=== PATIENT | male | born 1940 | race Asian ===

== ENCOUNTER 2021-08-18 18:44 | Inpatient (IN) | payer OTHER ==
[2021-08-18] MEDS ORDERED: HYDROcodone/Acetaminophen 5/325 mg Tablet ONE (20:33)
[2021-08-18] MEDS ORDERED: Dextrose 50% Abboject 50 ML SYRINGE SLOW IVP PRN (22:16)
[2021-08-18] MEDS ORDERED: Dextrose 5% in Water 1,000 ML IV PRN (22:16)
[2021-08-18] MEDS ORDERED: Insulin Regular 300 UNITS/3 ML VIAL SC PRN ×2 (22:16)
[2021-08-18] MEDS ORDERED: Ondansetron PF 4 MG/2 ML Vial IVP PRN (22:16)
[2021-08-18] MEDS ORDERED: Ondansetron ODT 4 MG TAB PO PRN (22:16)
[2021-08-18] MEDS ORDERED: traMADol HCl 50 MG TAB PO PRN (22:25)
[2021-08-18] MEDS ORDERED: Cyclobenzaprine 10 MG TAB PO PRN (22:25)
[2021-08-18 22:30] LABS: #Basophils 0.1 thou/uL (0.0-0.2); #Lymphocytes 1.5 thou/uL (1.20-3.40); #Monocytes 0.6 thou/uL (0.11-0.59); #Neutrophils 12.7 thou/uL (1.40-6.50); %Basophils 0.4 % (0.0-1.0); %Eosinophils 0.2 % (0.0-10.0); %Lymphocytes 9.9 % (21.0-51.0); %Monocytes 4.2 % (0.0-10.0); %Neutrophils 85.3 % (42.0-75.0); Hemoglobin 14.5 g/dL (14.0-18.0); Mean Corpuscular HGB CONC 34.5 g/dL (32.0-36.0); Mean Corpuscular Hemoglobin 29.7 pg (27.0-31.0); Mean Corpuscular Volume 86.1 fL (78.0-98.0); Platelet Count 234 thou/uL (130-400); RBC Distribution Width 12.3 % (11.5-14.5); Red Blood Cell (RBC) Count 4.88 mill/uL (4.70-6.10); White Blood Cell (WBC) Count 14.9 thou/uL (4.8-10.8)
[2021-08-18] MEDS ORDERED: Morphine 4 MG/ML VIAL SLOW IVP PRN (22:32)
[2021-08-18 22:47] LABS: Phosphorus 2.6 mg/dL (2.3-4.7)
[2021-08-18 22:51] LABS: BUN (Urea Nitrogen) 13 mg/dL (8.4-25.7); Calc. Creatinine Clearance 0 mL/min (70-130); Calcium 9.4 mg/dL (7.8-10.44); Carbon Dioxide 20 mmol/L (23-31); Chloride 99 mmol/L (98-107); Glucose 172 mg/dL (83-110); Magnesium 1.9 mg/dL (1.6-2.6); Potassium 4.7 mmol/L (3.5-5.1)
[2021-08-18] MEDS ORDERED: Ondansetron PF 4 MG/2 ML Vial ONE (23:23)
[2021-08-18] MEDS ORDERED: Morphine 4 MG/ML VIAL ONE (23:23)
[2021-08-18 23:33] LABS: Sodium 130 mmol/L (136-145)
[2021-08-18 23:44] LABS: Anion Gap 16 mmol/L (10-20)
[2021-08-19] MEDS: Sodium Chloride 0.9% 1,000 ML IV SCH ×3 (01:07→23:22)
[2021-08-19 01:19] VITALS: BMI 21.2
[2021-08-19] MEDS: traMADol HCl 50 MG TAB PO SCH ×5 (01:57→23:03)
[2021-08-19] MEDS: Acetaminophen 500 MG TAB PO SCH ×5 (01:58→23:02)
[2021-08-19 05:39] LABS: #Lymphocytes 1.8 thou/uL (1.20-3.40); #Monocytes 1.3 thou/uL (0.11-0.59); #Neutrophils 9.9 thou/uL (1.40-6.50); %Basophils 0.1 % (0.0-1.0); %Eosinophils 0.2 % (0.0-10.0); %Lymphocytes 13.7 % (21.0-51.0); %Monocytes 9.9 % (0.0-10.0); %Neutrophils 76.2 % (42.0-75.0); Mean Corpuscular HGB CONC 35.9 g/dL (32.0-36.0); Mean Corpuscular Hemoglobin 30.9 pg (27.0-31.0); Mean Corpuscular Volume 86.1 fL (78.0-98.0); Mean Platelet Volume 7.1 fL (7.4-10.4); Platelet Count 227 thou/uL (130-400); RBC Distribution Width 12.2 % (11.5-14.5); Red Blood Cell (RBC) Count 4.22 mill/uL (4.70-6.10); White Blood Cell (WBC) Count 12.9 thou/uL (4.8-10.8)
[2021-08-19 05:49] LABS: INR-International Normal Ratio 1.1; Prothrombin Time 14.5 sec (12.0-14.7)
[2021-08-19 05:56] LABS: Anion Gap 14 mmol/L (10-20); BUN (Urea Nitrogen) 12 mg/dL (8.4-25.7); Calc. Creatinine Clearance 43 mL/min (70-130); Calcium 9.1 mg/dL (7.8-10.44); Carbon Dioxide 22 mmol/L (23-31); Chloride 100 mmol/L (98-107); Glucose 137 mg/dL (83-110); Potassium 4.2 mmol/L (3.5-5.1); Sodium 132 mmol/L (136-145)
[2021-08-19] MEDS ORDERED: ceFAZolin Sodium/D5W 2 GM in Premix Bag 1 BAG IVPB SCH (07:45)
[2021-08-19] MEDS ORDERED: Famotidine 20 MG TAB PO SCH (09:00)
[2021-08-19] MEDS ORDERED: Non-Formulary Item 1 EACH (Carvedilol [Coreg] 12.5 MG Tab) PO SCH (09:00)
[2021-08-19] MEDS: Carvedilol 6.25 MG TAB PO SCH ×2 (09:20→20:00)
[2021-08-19] MEDS: Famotidine 20 MG TAB PO SCH (09:20)
[2021-08-19] MEDS: Polyethylene Glycol 3350 17 GM Packet PO SCH (09:22)
[2021-08-19] MEDS: Senokot S 8.6-50 MG TAB PO SCH ×2 (09:22→20:01)
[2021-08-19 09:57] LABS: SARS-CoV-2 NAA Rapid Test Not Detected (NotDetected)
[2021-08-19] MEDS ORDERED: Fentanyl 100 MCG/2 ML VIAL ONE ×2 (12:27)
[2021-08-19] MEDS ORDERED: PHENYLEPHRINE-NS 100 MCG/ML 10 ML SYRINGE ONE (12:50)
[2021-08-19] MEDS ORDERED: Lidocaine 1% PF 5 ML VIAL ONE (12:50)
[2021-08-19] MEDS ORDERED: PROPOFOL 200 MG/20 ML VIAL ONE (12:50)
[2021-08-19] MEDS ORDERED: Ketorolac Tromethamine 30 MG/ML VIAL ONE (12:50)
[2021-08-19] MEDS ORDERED: Ondansetron PF 4 MG/2 ML Vial ONE (12:50)
[2021-08-19] MEDS ORDERED: Promethazine HCl 25 MG/ML VIAL IM PRN (13:18)
[2021-08-19] MEDS ORDERED: Promethazine HCl 25 MG/ML VIAL IVPB PRN (13:18)
[2021-08-19] MEDS ORDERED: Ondansetron HCl/PF 4 MG/2 ML Vial IVP PRN (13:18)
[2021-08-19] MEDS: hydrALAZINE 20 MG/ML VIAL SLOW IVP PRN (23:19)
[2021-08-20 03:31] LABS: #Lymphocytes 1.3 thou/uL (1.20-3.40); #Neutrophils 10.7 thou/uL (1.40-6.50); %Basophils 0.1 % (0.0-1.0); %Eosinophils 0.1 % (0.0-10.0); %Lymphocytes 10.2 % (21.0-51.0); %Monocytes 7.4 % (0.0-10.0); %Neutrophils 82.3 % (42.0-75.0); Anion Gap 12 mmol/L (10-20); BUN (Urea Nitrogen) 14 mg/dL (8.4-25.7); Calc. Creatinine Clearance 45 mL/min (70-130); Calcium 8.5 mg/dL (7.8-10.44); Carbon Dioxide 21 mmol/L (23-31); Chloride 102 mmol/L (98-107); Glucose 136 mg/dL (83-110); Hemoglobin 12.6 g/dL (14.0-18.0); Magnesium 1.6 mg/dL (1.6-2.6); Mean Corpuscular HGB CONC 36.8 g/dL (32.0-36.0); Mean Corpuscular Hemoglobin 31.9 pg (27.0-31.0); Mean Corpuscular Volume 86.7 fL (78.0-98.0); Phosphorus 2.7 mg/dL (2.3-4.7); Platelet Count 209 thou/uL (130-400); RBC Distribution Width 12.4 % (11.5-14.5); Red Blood Cell (RBC) Count 3.97 mill/uL (4.70-6.10); Sodium 131 mmol/L (136-145)
[2021-08-20] MEDS: hydrALAZINE 20 MG/ML VIAL SLOW IVP PRN ×3 (04:52→23:17)
[2021-08-20] MEDS: Acetaminophen 500 MG TAB PO SCH ×4 (04:53→20:06)
[2021-08-20] MEDS: traMADol HCl 50 MG TAB PO SCH ×3 (04:54→18:17)
[2021-08-20] MEDS: Polyethylene Glycol 3350 17 GM Packet PO SCH (09:06)
[2021-08-20] MEDS: Carvedilol 6.25 MG TAB PO SCH ×2 (09:07→20:05)
[2021-08-20] MEDS: Senokot S 8.6-50 MG TAB PO SCH ×2 (09:07→20:05)
[2021-08-20] MEDS: Ondansetron PF 4 MG/2 ML Vial IVP PRN (09:57)
[2021-08-20] MEDS ORDERED: Amlodipine 5 MG TAB PO SCH (10:15)
[2021-08-20] MEDS ORDERED: Losartan 25 MG TAB PO SCH (10:15)
[2021-08-20] MEDS: Famotidine 20 MG TAB PO SCH (10:35)
[2021-08-20] MEDS: Sodium Chloride 0.9% 1,000 ML IV SCH ×3 (10:38→23:20)
[2021-08-20] MEDS ORDERED: Magnesium Sulfate 4 GM in Sodium Chloride 0.9% 250 ML 250 ML IVPB SCH (11:15)
[2021-08-20] MEDS: Scopolamine 1.5 mg/72 hour Patch TD SCH (11:42)
[2021-08-20 12:09] LABS: Troponin I 0.015 ng/mL (< 0.028)
[2021-08-21] MEDS: traMADol HCl 50 MG TAB PO SCH ×4 (00:07→18:40)
[2021-08-21] MEDS: Acetaminophen 500 MG TAB PO SCH ×4 (05:39→23:48)
[2021-08-21] MEDS: hydrALAZINE 20 MG/ML VIAL SLOW IVP PRN ×2 (06:19→09:34)
[2021-08-21] MEDS: Ondansetron PF 4 MG/2 ML Vial IVP PRN (06:36)
[2021-08-21 07:18] LABS: Anion Gap 13 mmol/L (10-20); BUN (Urea Nitrogen) 11 mg/dL (8.4-25.7); Calc. Creatinine Clearance 51 mL/min (70-130); Carbon Dioxide 20 mmol/L (23-31); Chloride 103 mmol/L (98-107); Glucose 162 mg/dL (83-110); Potassium 3.6 mmol/L (3.5-5.1); Sodium 132 mmol/L (136-145)
[2021-08-21 07:23] LABS: #Lymphocytes 1.1 thou/uL (1.20-3.40); #Monocytes 1.2 thou/uL (0.11-0.59); #Neutrophils 11.8 thou/uL (1.40-6.50); %Basophils 0.2 % (0.0-1.0); %Eosinophils 0.1 % (0.0-10.0); %Lymphocytes 7.9 % (21.0-51.0); %Monocytes 8.6 % (0.0-10.0); %Neutrophils 83.2 % (42.0-75.0); Hemoglobin 11.4 g/dL (14.0-18.0); Mean Corpuscular HGB CONC 34.3 g/dL (32.0-36.0); Mean Corpuscular Hemoglobin 29.3 pg (27.0-31.0); Mean Corpuscular Volume 85.7 fL (78.0-98.0); Mean Platelet Volume 7.7 fL (7.4-10.4); Platelet Count 201 thou/uL (130-400); RBC Distribution Width 12.4 % (11.5-14.5); Red Blood Cell (RBC) Count 3.88 mill/uL (4.70-6.10); White Blood Cell (WBC) Count 14.1 thou/uL (4.8-10.8)
[2021-08-21] MEDS: Polyethylene Glycol 3350 17 GM Packet PO SCH (08:44)
[2021-08-21] MEDS: Losartan 25 MG TAB PO SCH (08:44)
[2021-08-21] MEDS: Senokot S 8.6-50 MG TAB PO SCH ×2 (08:44→22:11)
[2021-08-21] MEDS: Carvedilol 6.25 MG TAB PO SCH ×2 (08:45→22:11)
[2021-08-21] MEDS: Famotidine 20 MG TAB PO SCH (08:45)
[2021-08-21] MEDS ORDERED: Non-Formulary Item 1 EACH (Olmesartan Medoxomil [Benicar] 40 MG Tab) PO SCH (09:00)
[2021-08-21] MEDS ORDERED: Amlodipine 5 MG TAB PO SCH ×3 (09:00→17:30)
[2021-08-21] MEDS: Clopidogrel Bisulfate 75 MG TAB PO SCH (09:34)
[2021-08-21] MEDS: Sodium Chloride 0.9% 1,000 ML IV SCH (11:45)
[2021-08-21] MEDS: Tamsulosin HCl 0.4 MG CAP PO SCH (22:10)
[2021-08-22] MEDS: hydrALAZINE 20 MG/ML VIAL SLOW IVP PRN (00:52)
[2021-08-22] MEDS: traMADol HCl 50 MG TAB PO SCH ×4 (00:53→18:31)
[2021-08-22] MEDS: Acetaminophen 500 MG TAB PO SCH ×4 (04:26→21:05)
[2021-08-22] MEDS ORDERED: Bisacodyl 10 MG SUPP PR SCH (09:15)
[2021-08-22] MEDS: Amlodipine 10 MG TAB PO SCH (09:50)
[2021-08-22] MEDS: Losartan 25 MG TAB PO SCH (09:50)
[2021-08-22] MEDS: Senokot S 8.6-50 MG TAB PO SCH ×2 (09:50→21:05)
[2021-08-22] MEDS: Famotidine 20 MG TAB PO SCH (09:50)
[2021-08-22] MEDS: Clopidogrel Bisulfate 75 MG TAB PO SCH (09:51)
[2021-08-22] MEDS: Carvedilol 6.25 MG TAB PO SCH ×2 (09:51→21:05)
[2021-08-22] MEDS: Polyethylene Glycol 3350 17 GM Packet PO SCH (09:52)
[2021-08-22] MEDS: Neostigmine 0.5 MG in Syringe 0 ML SC SCH ×2 (13:41→18:30)
[2021-08-22] MEDS: Tamsulosin HCl 0.4 MG CAP PO SCH (21:05)
[2021-08-23] MEDS: traMADol HCl 50 MG TAB PO SCH ×4 (00:54→17:52)
[2021-08-23] MEDS: Neostigmine 0.5 MG in Syringe 0 ML SC SCH ×2 (01:02→06:02)
[2021-08-23] MEDS: Acetaminophen 500 MG TAB PO SCH ×3 (04:38→17:50)
[2021-08-23] MEDS: Polyethylene Glycol 3350 17 GM Packet PO SCH (08:13)
[2021-08-23] MEDS: Senokot S 8.6-50 MG TAB PO SCH (08:14)
[2021-08-23] MEDS: Losartan 25 MG TAB PO SCH (08:23)
[2021-08-23] MEDS: Famotidine 20 MG TAB PO SCH (08:24)
[2021-08-23] MEDS: Carvedilol 6.25 MG TAB PO SCH (08:24)
[2021-08-23] MEDS: Clopidogrel Bisulfate 75 MG TAB PO SCH (08:24)
[2021-08-23] MEDS: Amlodipine 10 MG TAB PO SCH (08:24)
[2021-08-23] MEDS ORDERED: Carvedilol 6.25 MG TAB PO SCH (09:15)
[2021-08-23] MEDS: Scopolamine 1.5 mg/72 hour Patch TD SCH (12:04)
[2021-08-23] MEDS ORDERED: Carvedilol 25 MG TAB PO SCH (21:00)
[2021-08-23 21:06] VITALS: BP 179/64; TEMP 98.5
== END 2021-08-23 21:00 | DRG 493 ==
LOC: ERS 18:44 → EDBD 22:25 → SURG A 22:25
PROVIDERS: ADMIT Surgery; ATTEND Surgery
PROC: 0QSG04Z Reposition Right Tibia with Internal Fixation Device, Open Approach (ICD-10-PCS; principal; 2021-08-19)
DX: S82.301A Unspecified fracture of lower end of right tibia, initial encounter for closed fracture (principal); K56.7 Ileus, unspecified; I10 Essential (primary) hypertension; I25.10 Atherosclerotic heart disease of native coronary artery without angina pectoris; S82.491A Other fracture of shaft of right fibula, initial encounter for closed fracture; E11.9 Type 2 diabetes mellitus without complications; W19.XXXA Unspecified fall, initial encounter; R33.9 Retention of urine, unspecified; R11.2 Nausea with vomiting, unspecified; T41.45XA Adverse effect of unspecified anesthetic, initial encounter; Y92.89 Other specified places as the place of occurrence of the external cause; Z95.5 Presence of coronary angioplasty implant and graft; Z20.822 Contact with and (suspected) exposure to COVID-19
CPT/HCPCS: 29505; 36415; 36416; 71045; 76000; 80048; 83735; 84100; 84484; 85025; 85610; 85730; 93005; 93010; 93306; 94640; 96374; 96375; G0390; J0360; J1885; J2270; J2405; J2704; J2710; J3010; J3475; J7050; J7620; Q0162; U0002